=== PATIENT | female | born 1950 | race Caucasian/White ===

== ENCOUNTER 2017-01-19 13:31 | Emergency (ER) | payer MEDICARE, OTHER ==
[2017-01-19] MEDS ORDERED: HYDROMORPHONE HCL 1 MG/ML SYRINGE ONE (13:56)
[2017-01-19] MEDS ORDERED: ONDANSETRON 4 MG/2ML 2 ML VIAL ONE (13:56)
[2017-01-19 13:58] LABS: ABSOLUTE NEUTROPHIL COUNT 3.4 K/mm3 (1.8-7.7); BASO # 0.1 K/mm3 (0.0-0.2); BASO % 0.8 % (0.2-1.0); EOS # 0.1 (0.0-0.5); EOS % 1.7 % (0.9-2.9); HEMATOCRIT 40.9 % (37.0-47.0); IMM NEUT% 0.2 % (0-1); LYMPH # 2.4 (1.0-4.8); LYMPH % 37.1 % (15-45); MEAN CELL VOLUME 88.1 fl (81.0-99.0); MEAN CORPUSCULAR HGB CONC 31.8 g/dl (33.0-37.0); MEAN PLATELET VOLUME 10.3 fl (7.4-10.4); MONO # 0.5 (0.0-0.8); MONO % 7.9 % (4-12); NEUT % 52.3 % (43-75); PLATELET COUNT 189 K/mm3 (130-400); RED CELL DISTRIBUTION WIDTH 12.8 % (11.5-14.5)
[2017-01-19 14:10] LABS: ALB/GLOB RATIO 1.5 (>1.0); CALCIUM 9.3 mg/dL (8.6-10.3)
[2017-01-19 14:13] LABS: TROPONIN I < 0.01 ng/ml (0.0-0.06)
[2017-01-19 14:17] LABS: CKMB ISOENZYME 2.2 ng/ml (0.6-6.3)
--- NOTE | 2017-01-19 15:40 | US ---
ABDOMINAL-LIMITED: 01/19/2017 2:05 PM CLINICAL HISTORY: Right upper quadrant pain.. STUDY: Limited right upper quadrant ultrasound COMPARISON: none FINDINGS: Gallbladder: Wall thickness: Normal Cholelithiasis: none Pericholecystic Fluid: none Sonographic Stevenson's Sign: Equivocal as the patient was given pain meds. Bile ducts: Common bile duct measures 4 mm. Limited visualized Liver and RUQ structures: normal IMPRESSION: No evidence of cholelithiasis or acute cholecystitis given limitations as above. Report was uploaded to the electronic medical record at approximately 1536 hours on 01/19/2017.
[2017-01-19] MEDS ORDERED: ASPIRIN CHEWTAB 81 MG TABLET ONE (15:46)
--- NOTE | 2017-01-19 15:55 | RAD ---
01/19/2017 3:51 PM CHEST - 2 VIEWS History: Chest pain radiating to right arm and throat. Comparison: None Findings: Two views of the chest are obtained. The lungs are clear with out effusion or pneumothorax. The cardiomediastinal silhouette is unremarkable.. The osseous structures are intact.. IMPRESSION: No acute intrathoracic process.
== END 2017-01-19 16:39 | disposition home or self-care (01) ==
LOC: ED 13:31
DX: R10.9 Unspecified abdominal pain (principal); R07.9 Chest pain, unspecified; I25.10 Atherosclerotic heart disease of native coronary artery without angina pectoris
CPT/HCPCS: 83690; 85025; 82550; 82553; 80053; 84484 ×2; 71020; 76705; 99283; 99284; A9270; J1170; J2405

== ENCOUNTER 2017-02-05 13:26 | Observation (INO) | payer MEDICARE, OTHER ==
[2017-02-05 14:56] LABS: BASO % 0.3 % (0.2-1.0); EOS # 0.1 (0.0-0.5); EOS % 0.5 % (0.9-2.9); HEMATOCRIT 36.6 % (37.0-47.0); HEMOGLOBIN 11.6 gm/l (12.0-16.0); IMM NEUT% 0.4 % (0-1); LYMPH # 1.6 (1.0-4.8); LYMPH % 15.4 % (15-45); MEAN CELL VOLUME 88.2 fl (81.0-99.0); MEAN CORPUSCULAR HGB CONC 31.7 g/dl (33.0-37.0); MEAN PLATELET VOLUME 9.9 fl (7.4-10.4); MONO # 0.7 (0.0-0.8); MONO % 6.4 % (4-12); PLATELET COUNT 358 K/mm3 (130-400); RED CELL DISTRIBUTION WIDTH 12.4 % (11.5-14.5)
[2017-02-05 15:07] LABS: INR 1.05
[2017-02-05] MEDS ORDERED: SODIUM CHLORIDE 0.9% 1,000 ML ONE (15:51)
[2017-02-05 16:02] LABS: SPECIFIC GRAVITY 1.015 (1.001-1.030); URINE APPEARANCE CLEAR; URINE BILIRUBIN NEGATIVE (NEGATIVE); URINE BLOOD NEGATIVE (NEGATIVE); URINE COLOR YELLOW; URINE GLUCOSE (UA) NEGATIVE (NEGATIVE); URINE LEUKOCYTE ESTERASE TRACE (NEGATIVE); URINE NITRITE NEGATIVE (NEGATIVE); URINE PROTEIN NEGATIVE (NEGATIVE); URINE UROBILINOGEN NORMAL (0-1 mg/dl)
[2017-02-05] MEDS ORDERED: METRONIDAZOLE 500 MG/NS 100 ML 100 ML IV ONE ×2 (16:10→22:09)
[2017-02-05] MEDS ORDERED: LEVOFLOXACIN 750 MG/D5W 150 ML 150 ML IV ONE (16:10)
[2017-02-05 16:17] LABS: URINE BACTERIA 0; URINE EPITHELIAL CELLS 0 /hpf; URINE RBC 0 /hpf; URINE WBC 0-2 /hpf
--- NOTE | 2017-02-05 17:02 | RAD ---
CHEST - 2 VIEWS COMPARISON: Chest 2 views, 01/19/2017 HISTORY: Diverticulitis. Being admitted. Possible preop chest. FINDINGS: Views: Frontal and lateral chest Lungs: Normal Heart and vessels: Normal Trachea and bronchi: Normal Mediastinum and shanika: Normal Costophrenic sulci: Normal Chest wall and bones: Normal. Upper abdomen: Normal. IMPRESSION: Negative 2 view chest.
[2017-02-05 18:39] LABS: ALBUMIN 3.1 gm/dL (3.5-5.7); CALCIUM 8.6 mg/dL (8.6-10.3)
[2017-02-05] MEDS ORDERED: MENTHOL/CETYLPYRD 1 EACH LOZENGE PO PRN (20:59)
[2017-02-05] MEDS ORDERED: ONDANSETRON 4 MG/2ML 2 ML VIAL IV PRN (20:59)
[2017-02-05] MEDS ORDERED: BLISTEX LIPSTICK 1 EACH TP PRN (20:59)
[2017-02-05] MEDS ORDERED: ACETAMINOPHEN 325 MG TABLET PO PRN (20:59)
[2017-02-05] MEDS ORDERED: BISACODYL 10 MG SUP PR PRN (20:59)
[2017-02-05] MEDS ORDERED: KETOROLAC TROMETHAMINE 30 MG/ML 1 ML VIAL IV PRN (20:59)
[2017-02-05] MEDS ORDERED: OXYCODONE HCL 5 MG TABLET PO PRN (20:59)
[2017-02-05] MEDS ORDERED: SODIUM CHLORIDE 0.9% 500 ML IV ONE (20:59)
[2017-02-05 21:08] VITALS: BMI 28.9
[2017-02-05] MEDS ORDERED: PUMP TUBING ONE (22:09)
[2017-02-05] MEDS: DOCUSATE SODIUM 100 MG CAPSULE PO SCH (22:21)
[2017-02-05] MEDS: SENNOSIDES 8.6 MG TABLET PO SCH (22:21)
[2017-02-05] MEDS: METRONIDAZOLE 500 MG/NS 100 ML 500 MG in Premix (D5W) 100 ml 1 EACH IV SCH (22:21)
[2017-02-05] MEDS: D5 1/2NS with 20 mEq KCL 1,000 ML IV SCH (22:21)
[2017-02-05] MEDS: CIPROFLOXACIN IV 400 MG 400 MG in Premix (D5W) 200 ml 1 EACH IV SCH (23:40)
[2017-02-06] MEDS: METRONIDAZOLE 500 MG/NS 100 ML 500 MG in Premix (D5W) 100 ml 1 EACH IV SCH ×3 (04:07→16:02)
[2017-02-06 06:07] LABS: HEMATOCRIT 34.1 % (37.0-47.0); HEMOGLOBIN 10.8 gm/l (12.0-16.0); MEAN CELL VOLUME 87.9 fl (81.0-99.0); MEAN CORPUSCULAR HEMOGLOBIN 27.8 pg (27.0-31.0); MEAN CORPUSCULAR HGB CONC 31.7 g/dl (33.0-37.0); RED CELL DISTRIBUTION WIDTH 12.3 % (11.5-14.5)
--- NOTE | 2017-02-06 07:09 | CONS ---
Fadumo Oden [id number] DATE OF SERVICE: 02/05/2017 HISTORY OF PRESENT ILLNESS: Mrs. Oden is a 66-year-old female who presents with her first attack of diverticular disease. She underwent a colonoscopy approximately 6 months ago that demonstrated normal colon, but diverticulum were present. She presents to her family physician at the end of last week where she had left lower quadrant abdominal pain. She was discharged home, but a CAT scan was ordered and she returned on Saturday for a CAT scan imaging. The CAT scan revealed a inflamed distal sigmoid colon with a 4 cm area of phlegmon in the pericolonic tissue. This does not appear to be a drainable abscess and is not organized, it is simply a fluid collection in the region of the inflamed distal sigmoid colon. I discussed the radiographic findings with the physician legal contracts specialist at the patient's family medicine office earlier in the week. At that time, she had a normal white count, was afebrile, and had minimal pain. She was started on oral antibiotics and discharged home. I received a call today from the [facility] and then Mrs. Oden was transferred to the emergency department due to increasing abdominal pain. She states that she has not been taking her antibiotics as directed at home due to her fear of reactions based on her allergies to penicillin, erythromycin, and tetracycline. She states that her abdominal pain is slightly worse although, not significantly changed since the end of last week. She had repeat labs today performed in the emergency department. She has a white count of 10.4, hemoglobin of 11.6, platelets at 358 with normal INR and stable electrolytes. As previously mentioned on CAT scan she has evidence of diverticular disease with periappendiceal phlegmon. I had a long discussion today with Mrs. Oden reviewing the natural history of diverticular disease. I discussed the need for Duncan's procedure and colostomy if she was to develop worsening infection. I also discussed the elective approach with possible laparoscopic or open sigmoid resection with primary anastomosis. I discussed the fact that the treatment for diverticulitis depends on Mrs. Oden's response to antibiotics and her ability to settle the episode of acute diverticulitis. I discussed the fact that if her diverticulitis worsens she will require Duncan's, but hopefully we will be able to control her diverticulitis with antibiotics and bowel rest and then once she is improved she can be discharged home with outpatient antibiotics and plan for a discussion regarding potential elective resection down the line. I did discuss the importance of using antibiotics and bowel rest at this time point for Mrs. Oden. At this point, she agrees to proceed with IV antibiotics for approximately 24 hours and then we will plan for discharge home with oral antibiotics at that time. Mrs. Oden understands the admission to hospital. I did give her the option of discharge home, but I think her and her family are appreciative of being able to be admitted to the hospital for the IV treatment and ensuring that she improves adequately. I plan to follow Mrs. Oden closely. JOB: [id number]
[2017-02-06] MEDS: DOCUSATE SODIUM 100 MG CAPSULE PO SCH (08:33)
[2017-02-06] MEDS: SENNOSIDES 8.6 MG TABLET PO SCH (08:33)
[2017-02-06] MEDS: D5 1/2NS with 20 mEq KCL 1,000 ML IV SCH (09:51)
[2017-02-06] MEDS: CIPROFLOXACIN IV 400 MG 400 MG in Premix (D5W) 200 ml 1 EACH IV SCH (10:59)
[2017-02-06 13:13] LABS: CALCIUM 8.7 mg/dL (8.6-10.3)
[2017-02-06 17:56] VITALS: BP 150/81
== END 2017-02-06 19:10 | disposition home or self-care (01) ==
LOC: ED 13:26 → MS 17:54 → INTOOBSV 17:54
PROVIDERS: ADMIT Surgery; ATTEND Surgery
DX: K57.20 Diverticulitis of large intestine with perforation and abscess without bleeding (principal); Z91.14 Patient's other noncompliance with medication regimen
CPT/HCPCS: 83605; 85027; 85025; 87086; 80053 ×2; 85610; 81001; 71020; 99284; 96365; 96366; 96367; 93005; 99285; J0744; A9270 ×4; J7040; J7030; J1956